=== PATIENT | male | born 1965 ===

== ENCOUNTER 2018-01-29 20:10 | Emergency (ER) | payer SELFPAY ==
[2018-01-29 20:27] VITALS: BP 148/87; PULSE 84; RESP 20; TEMP 97.7; O2SAT 99
[2018-01-29] MEDS ORDERED: Tdap Vaccine 0.5 ml Vial (10-64 yrs) IM ONE ×2 (20:38→20:55)
[2018-01-29] MEDS ORDERED: Lidocaine 1% w Epi 1:100,000 Inj INJ ONE (20:38)
[2018-01-29] MEDS ORDERED: Bacitracin 500 Units/gm Oint Foilpak UD TOP ONE (20:38)
--- NOTE | 2018-01-29 20:53 | C.PDOC ---
History Of Present Illness 52-year-old male presents c/o laceration to his left hand while cutting an avocado just prior to arrival. Notes he put sugar on the laceration to help control the bleeding. Also notes some decrease sensation to the 2nd finger. Patient is right hand dominant. Denies weakness. Time Seen by Provider: 01/29/18 20:36 Chief Complaint (Nursing): Abnormal Skin Integrity History Per: Patient, [employer] Operator (ALEXIA Aguilera) History/Exam Limitations: no limitations Onset/Duration Of Symptoms: Hrs Current Symptoms Are (Timing): Still Present Location Of Injury: Left: Hand Quality Of Symptoms: Painful Additional History Per: Patient Past Medical History Reviewed: Historical Data, Nursing Documentation, Vital Signs Vital Signs: Last Vital Signs Temp 97.7 F 01/29/18 20:24 Pulse 84 01/29/18 20:24 Resp 20 01/29/18 20:24 BP 148/87 01/29/18 20:24 Pulse Ox 99 01/29/18 22:38 - Medical History PMH: No Chronic Diseases Surgical History: No Surg Hx Family History: States: Unknown Family Hx - Social History Hx Alcohol Use: No Hx Substance Use: No - Immunization History Hx Tetanus Toxoid Vaccination: No Hx Influenza Vaccination: No Hx Pneumococcal Vaccination: No Review Of Systems Except As Marked, All Systems Reviewed And Found Negative. Musculoskeletal: Positive for: Hand Pain (left ) Skin: Positive for: Other (laceration to left hand) Physical Exam - Physical Exam Appears: Non-toxic, No Acute Distress Skin: Warm, Dry, Other (1.5cm laceration to isbell aspect of left hand ) Head: Atraumatic, Normacephalic Eye(s): bilateral: Normal Inspection, EOMI Nose: Normal Oral Mucosa: Moist Neck: Normal ROM, Supple Chest: Symmetrical Respiratory: No Accessory Muscle Use Extremity: Normal ROM, Capillary Refill (less than 2 seconds ) Pulses: Left Radial: Normal, Right Radial: Normal Neurological/Psych: Oriented x3, Normal Speech, Normal Cognition, Normal Motor ( 5/5 against resistance), No Normal Sensation (? decreased sensation to 2nd finger) ED Course And Treatment O2 Sat by Pulse Oximetry: 99 (on RA) Pulse Ox Interpretation: Normal Progress Note: Tetanus IM administered. Bacitracin TOP applied. XR offered, patient declined. On re-exam, patient is resting comfortably, showing no signs of distress and is stable for discharge. Patient is provided with wound care instructions and is advised to f/u with PMD/ED for wound check in 2 days. Laceration - Laceration Repair isbell aspect of left hand Wound Length (In cm): 1.5 Description Of Wound: Linear Wound Cleansed With: Betadine, Sterile Saline Anesthesia: Lidocaine 1%, With Epi Wound Examination: Irrigated With Saline, No FB With Wound Exploration, No Tendon Injury With Wound Exploration Wound Closure: Suture (two ) Suture Technique And Material Used: Nylon (5-0) Wound Complexity: Simple Disposition - Disposition Referrals: David Castillo MD [Staff Provider] - Disposition: HOME/ ROUTINE Disposition Time: 21:09 Condition: STABLE Additional Instructions: Wound check in 2 days. Suture removal in 7-10 days. Return to ER if symptoms persist or worsen. Chequeo de heridas en 2 chen. Eliminacin de sutura en 7-10 chen. Regrese a la codey de emergencias si los sntomas persisten o empeoran. 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 - Scribe Statement The provider has reviewed the documentation as recorded by the Scribe (Karen Kraus) All medical record entries made by the Scribe were at my direction and personally dictated by me. I have reviewed the chart and agree that the record accurately reflects my personal performance of the history, physical exam, medical decision making, and the department course for this patient. I have also personally directed, reviewed, and agree with the discharge instructions and disposition.
[2018-01-29] MEDS ORDERED: Bacitracin 500 Units/gm Oint Foilpak UD ONE ×2 (20:58→21:21)
--- NOTE | 2018-01-29 21:08 | C.PDOC ---
Time Seen by Provider: 01/29/18 20:36 Chief Complaint (Nursing): Abnormal Skin Integrity Past Medical History Vital Signs: Last Vital Signs Temp 97.7 F 01/29/18 20:24 Pulse 84 01/29/18 20:24 Resp 20 01/29/18 20:24 BP 148/87 01/29/18 20:24 Pulse Ox 99 01/29/18 20:24 - Social History Hx Alcohol Use: No Hx Substance Use: No - Immunization History Hx Tetanus Toxoid Vaccination: No Hx Influenza Vaccination: No Hx Pneumococcal Vaccination: No ED Course And Treatment O2 Sat by Pulse Oximetry: 99 Disposition - Disposition Referrals: David Castillo MD [Staff Provider] - Disposition: HOME/ ROUTINE Disposition Time: 21:09 Condition: STABLE Additional Instructions: Wound check in 2 days. Suture removal in 7-10 days. Return to ER if symptoms persist or worsen. Chequeo de heridas en 2 chen. Eliminacin de sutura en 7-10 chen. Regrese a la codey de emergencias si los sntomas persisten o empeoran. Instructions: Laceration Repair With Stitches (DC) Print Language: SUDANESE
== END 2018-01-29 21:38 | disposition home or self-care (01) ==
LOC: C.ER 20:10
DX: S61.412A Laceration without foreign body of left hand, initial encounter (principal); W26.0XXA Contact with knife, initial encounter; Y93.G1 Activity, food preparation and clean up; Y92.89 Other specified places as the place of occurrence of the external cause; Z23 Encounter for immunization